=== PATIENT | female | born 1965 | race Caucasian/White ===

== ENCOUNTER 2020-11-11 16:55 | Emergency (ER) | payer SELFPAY ==
[~2020-11-11] VITALS: Ht 165.1 cm; Wt 71.7 kg
--- NOTE | 2020-11-11 16:55 | NUR ---
PT BIB SELF C/O ABDOMINAL PAIN STARTED WEDNESDAY. PT IS AAOX4, NOT IN RESPIRATORY DISTRESS, V/S STABLE, KEPT RESTED AND COMFORTABLE. WILL CONTINUE TO MONITOR.
--- NOTE | 2020-11-11 17:22 | NUR ---
URINE SPECIMEN COLLECTED AND SENT TO LAB.
--- NOTE | 2020-11-11 17:30 | NUR ---
IV LINE ESTABLISHED BLOOD DRAWN AND SENT TO LAB.
[2020-11-11] MEDS: ONDANSETRON HCL/PF 4 MG/2 ML VIAL IVP ONE (17:37)
[2020-11-11] MEDS: IV NS 0.9% 1,000 ML IV ONE (17:37)
[2020-11-11] MEDS: IV NS 0.9% 1,000 ML BAG IV ONE (17:37)
[2020-11-11] MEDS ORDERED: ONDANSETRON HCL/PF 4 MG/2 ML VIAL ONE (17:38)
[2020-11-11] MEDS: ONDANSETRON HCL/PF - ER 4 MG/2 ML VIAL IV ONE (17:38)
[2020-11-11] MEDS ORDERED: KETOROLAC TROMETHAMINE 15 MG/ML VIAL ONE (17:38)
[2020-11-11 17:41] LABS: BASOPHILS % (AUTO) 0.5 % (0.0-2.0); EOSINOPHILS % (AUTO) 1.8 % (0.0-6.0); HEMATOCRIT 40 % (33-45); HEMOGLOBIN 13.6 g/dL (11.5-14.8); LYMPHOCYTES # (AUTO) 1.8 K/uL (0.8-4.8); MEAN CORPUSCULAR HGB CONC 34 g/dl (31.0-36.0); MEAN CORPUSCULAR VOLUME 95 fL (82-100); MONOCYTES # (AUTO) 0.6 K/uL (0.1-1.30); MONOCYTES % (AUTO) 6.7 % (2.0-12.0); NEUTROPHILS # (AUTO) 6.8 K/uL (1.8-8.9); PLATELET COUNT (AUTO) 374 K/uL (150-450); RED BLOOD CELL COUNT(AUTO) 4.25 MIL/uL (4.0-5.2); WHITE BLOOD COUNT (AUTO) 9.4 K/uL (4.3-11.0)
[2020-11-11] MEDS: KETOROLAC TROMETHAMINE INJ 30 MG/ML VIAL IV ONE (18:00)
[2020-11-11 18:04] LABS: CALCIUM, SERUM 9.6 mg/dL (8.5-10.1); CARBON DIOXIDE 26 mmol/L (21-32); CHLORIDE 101 mmol/L (98-107); CREATININE 0.9 mg/dL (0.6-1.3); GLUCOSE 95 mg/dL (74-106); POTASSIUM 3.2 mmol/L (3.5-5.1); SODIUM SERUM 137 mmol/L (136-145); UREA NITROGEN, BLOOD 7 mg/dL (7-18)
[2020-11-11 18:06] LABS: BILIRUBIN,URINE Negative (NEGATIVE); COLOR,URINE YELLOW (YELLOW); LEUKOCYTE ESTERASE ,URINE Negative (NEGATIVE); NITRITE, URINE Negative (NEGATIVE); PH,URINE 7.5 (5.0-8.0); PROTEIN,URINE Negative (NEGATIVE); UGLUCOSE Negative (NEGATIVE); UROBILINOGEN,URINE 0.2 EU/dL (0.2)
[2020-11-11 18:08] LABS: ALANINE AMINOTRANSFERASE 12 U/L (12-78); ALKALINE PHOSPHATASE 103 U/L (46-116); ASPARTATE AMINOTRANSFERASE 16 U/L (15-37); BILIRUBIN,DIRECT 0.1 mg/dL (0.0-0.2); BILIRUBIN,TOTAL 0.4 mg/dL (0.2-1.0); LIPASE 128 U/L (73-393); TOTAL PROTEIN, SERUM 8.3 g/dL (6.4-8.2)
[2020-11-11] MEDS ORDERED: IOHEXOL-300 100 ML VIAL IV ONE (18:31)
[2020-11-11] MEDS ORDERED: IV NS 0.9% 250 ML IV ONE (18:32)
[2020-11-11] MEDS ORDERED: IBUP-1955 PO (21:33)
--- NOTE | 2020-11-11 21:58 | NUR ---
Patient discharged to home in stable condition. Written and verbal after care instructions given. Patient verbalizes understanding of instruction.IV removed. Catheter intact and site benign. Pressure and 4x4 applied to site. No bleeding noted. Pt ambulatory with a steady gait
[2020-11-11] MEDS ORDERED: POTASSIUM CHLORIDE 20 MEQ TAB.PRT.SR PO ONE (22:00)
[2020-11-11 22:01] VITALS: BP 121/68
== END 2020-11-11 22:01 | disposition home or self-care (01) ==
LOC: ER 17:01
DX: K80.50 Calculus of bile duct without cholangitis or cholecystitis without obstruction (principal); R91.1 Solitary pulmonary nodule; E87.6 Hypokalemia; R94.31 Abnormal electrocardiogram [ECG] [EKG]; Z88.0 Allergy status to penicillin; Z79.899 Other long term (current) drug therapy
CPT/HCPCS: 36415; 74177; 76705; 80048; 80076; 80307; 80320; 81003; 83690; 84484; 84703; 85025; 93005; 96361; 96374; 96375; 99285; J1885; J2405 ×2; J7030; J7050; Q9967; G0480